=== PATIENT | female | born 1980 | race African-American/Black ===

== ENCOUNTER 2020-07-01 18:57 | Emergency (ER) | payer OTHER ==
[2020-07-01 19:10] VITALS: BP 129/79; PULSE 92; TEMP 98.3; BMI 27.4
[2020-07-01 21:50] LABS: BASO % 0.7 % (0-2.0); EOS % 0.3 % (0-4.5); HEMATOCRIT 38.7 % (32.4-45.2); HEMOGLOBIN 12.7 GM/dL (10.7-15.3); LYMPH % 36.3 % (8-40); MCH 28.3 pg (25.7-33.7); MCHC 32.9 g/dl (32.0-36.0); MEAN CELL VOLUME 86.2 fl (80-96); MEAN PLT VOLUME 8.8 fl (7.5-11.1); MONO % 7.6 % (3.8-10.2); NEUT % 55.1 % (42.8-82.8); PLATELET COUNT 265 K/MM3 (134-434); RBC 4.49 M/mm3 (3.60-5.2); RDW 15.5 % (11.6-15.6); WHITE BLOOD COUNT 5.1 K/mm3 (4.0-10.0)
[2020-07-01 22:56] LABS: URINE APPEARANCE CLEAR; URINE BILIRUBIN NEGATIVE (NEGATIVE); URINE COLOR YELLOW; URINE GLUCOSE (UA) NEGATIVE (NEGATIVE); URINE KETONE NEGATIVE (NEGATIVE); URINE LEUK ESTERASE NEGATIVE (NEGATIVE); URINE NITRITE NEGATIVE (NEGATIVE); URINE PROTEIN NEGATIVE (NEGATIVE)
== END 2020-07-02 00:30 | disposition home or self-care (01) ==
LOC: JER 18:57
DX: O26.851 Spotting complicating pregnancy, first trimester (principal); Z3A.08 8 weeks gestation of pregnancy
CPT/HCPCS: 36415; 76817-TC; 81003; 84702; 85025; 86850; 86900; 86901; 87086; 99284-25

== ENCOUNTER 2020-07-08 16:15 | Emergency (ER) | payer OTHER ==
[2020-07-08 16:25] VITALS: BP 133/83; PULSE 83; TEMP 97.9; BMI 35.6
== END 2020-07-08 20:36 | disposition home or self-care (01) ==
LOC: JER 16:15
DX: O20.8 Other hemorrhage in early pregnancy (principal); Z3A.01 Less than 8 weeks gestation of pregnancy
CPT/HCPCS: 36415; 76817-TC; 84702; 99284-25

== ENCOUNTER 2021-04-06 16:16 | Inpatient (IN) | payer OTHER ==
[2021-04-06] MEDS ORDERED: SODIUM CHLORIDE 0.9% 500 ML INFUS.BAG IV ONE ×2 (19:13→20:28)
[2021-04-06] MEDS ORDERED: ACETAMINOPHEN 1000 MG/100 ML BAG IVPB ONE (19:13)
[2021-04-06] MEDS ORDERED: ACETAMINOPHEN INJECTION 100 ML IVPB ONE (19:36)
[2021-04-06 19:46] LABS: BASO % 0.1 % (0-2.0); HEMATOCRIT 42.3 % (32.4-45.2); HEMOGLOBIN 11.5 GM/dL (10.7-15.3); LYMPH % 4.8 % (8-40); MCH 24.1 pg (25.7-33.7); MCHC 27.2 g/dl (32.0-36.0); MEAN CELL VOLUME 88.4 fl (80-96); MEAN PLT VOLUME 9.3 fl (7.5-11.1); MONO % 1.1 % (3.8-10.2); PLATELET COUNT 225 10^3/uL (134-434); RBC 4.79 M/mm3 (3.60-5.2); RDW 15.4 % (11.6-15.6); WHITE BLOOD COUNT 3.7 K/mm3 (4.0-10.0)
[2021-04-06 20:14] LABS: CHLORIDE 105 mmol/L (98-107); SODIUM 133 mmol/L (136-145)
[2021-04-06 20:22] LABS: ANISOCYTOSIS 3+; MACROCYTOSIS 0
[2021-04-06] MEDS ORDERED: ONDANSETRON 4 MG/2 ML VIAL IVPUSH ONE ×2 (20:28→22:01)
[2021-04-06] MEDS ORDERED: ONDANSETRON 4 MG/2 ML VIAL ONE ×2 (20:31→22:02)
[2021-04-06 21:14] LABS: CO2 17 mmol/L (21-32)
[2021-04-06 21:29] LABS: ALBUMIN 3.5 g/dl (3.4-5.0); CALCIUM 9.8 mg/dL (8.5-10.1)
[2021-04-06 21:30] LABS: GLUCOSE,RANDOM 92 mg/dL (74-106)
[2021-04-06 21:33] LABS: CREATININE 1.3 mg/dL (0.55-1.3); SGOT/AST 94 U/L (15-37)
[2021-04-06 21:34] LABS: BILIRUBIN,TOTAL 0.5 mg/dL (0.2-1); TOT PROT 8.2 g/dl (6.4-8.2)
[2021-04-06 21:36] LABS: ALK PHOS 78 U/L (45-117)
[2021-04-06 21:37] LABS: EPI CELLS 4 /uL (0-25.1); HYALINE CASTS 1 /uL (0-3.1); PH,URINE 5.5 (5.0-8.0); URINE APPEARANCE CLOUDY; URINE BACTERIA 8553 /uL (0-1359); URINE BILIRUBIN NEGATIVE (NEGATIVE); URINE COLOR YELLOW; URINE GLUCOSE (UA) NEGATIVE (NEGATIVE); URINE KETONE 1+ (NEGATIVE); URINE LEUK ESTERASE 2+ (NEGATIVE); URINE NITRITE NEGATIVE (NEGATIVE); URINE PROTEIN TRACE (NEGATIVE); URINE RBC 29 /uL (0-23.9); URINE WBC 1458 /uL (0-25.8)
[2021-04-06 21:41] LABS: BLOOD UREA NITROGEN 9.5 mg/dL (7-18)
[2021-04-06 21:57] LABS: ANION GAP 11 MMOL/L (8-16); SGPT/ALT 61 U/L (13-61)
[2021-04-06] MEDS ORDERED: NITROFURANTOIN MACROCRYSTAL 50 MG CAPSULE (FP) PO ONE (22:00)
[2021-04-06] MEDS ORDERED: NITROFURANTOIN MACROCRYSTAL 50 MG CAPSULE (FP) PO SCH (22:00)
[2021-04-06] MEDS ORDERED: CEFTRIAXONE 1 GM/50 ML BAG ONE (23:46)
[2021-04-07] MEDS ORDERED: ACETAMINOPHEN 1000 MG/100 ML BAG IVPB ONE (00:03)
[2021-04-07] MEDS ORDERED: ACETAMINOPHEN INJECTION 100 ML IVPB ONE ×2 (00:04→04:38)
[2021-04-07] MEDS ORDERED: SODIUM CHLORIDE 1,000 ML IV STA ×2 (02:39→06:18)
[2021-04-07] MEDS ORDERED: PIPERACILLIN/TAZOB 3.375 GM 3.375 GM in DEXTROSE 5%-WATER - 50 ML IVPB SCH ×4 (03:45→18:00)
[2021-04-07] MEDS ORDERED: PIPERACILLIN/TAZOB 3.375 GM 3.375 GM/50 ML BAG IVPB ONE (03:56)
[2021-04-07] MEDS ORDERED: SODIUM CHLORIDE 1,000 ML IV SCH ×2 (04:30→10:53)
[2021-04-07 04:32] LABS: HEMATOCRIT 32.3 % (32.4-45.2); HEMOGLOBIN 10.7 GM/dL (10.7-15.3); MCH 28.8 pg (25.7-33.7); MCHC 33.2 g/dl (32.0-36.0); MEAN CELL VOLUME 86.8 fl (80-96); MEAN PLT VOLUME 8.7 fl (7.5-11.1); PLATELET COUNT 136 10^3/uL (134-434); RBC 3.72 M/mm3 (3.60-5.2); RDW 14.9 % (11.6-15.6); WHITE BLOOD COUNT 10.5 K/mm3 (4.0-10.0)
[2021-04-07 04:52] LABS: BLOOD UREA NITROGEN 9.7 mg/dL (7-18)
[2021-04-07 04:55] LABS: CREATININE 1.5 mg/dL (0.55-1.3)
[2021-04-07 04:57] LABS: BILIRUBIN,TOTAL 0.4 mg/dL (0.2-1)
[2021-04-07 05:00] LABS: ALBUMIN 2.4 g/dl (3.4-5.0); CALCIUM 8.2 mg/dL (8.5-10.1); LACTIC ACID 4.1 mmol/L (0.4-2.0); TOT PROT 5.6 g/dl (6.4-8.2)
[2021-04-07 05:51] LABS: ANISOCYTOSIS 1+; MACROCYTOSIS 0; PLATELET ESTIMATE DECREASED
[2021-04-07] MEDS ORDERED: HEPARIN NA (PORCINE) 5,000 UNITS/ML 1ML VIAL SQ SCH ×3 (06:00→10:00)
[2021-04-07] MEDS ORDERED: SODIUM CHLORIDE 500 ML IV STA (06:14)
[2021-04-07] MEDS ORDERED: NITROFURANTOIN MACROCRYSTAL 50 MG CAPSULE (FP) PO ONE (07:28)
[2021-04-07] MEDS ORDERED: ACETAMINOPHEN 1000 MG/100 ML BAG IVPB PRN (08:36)
[2021-04-07] MEDS ORDERED: PIPERACILLIN/TAZOBACTAM 3.375 GM VIAL IVPB ONE (08:43)
[2021-04-07] MEDS ORDERED: DEXTROSE 5%-WATER - 50 ML IVPB ONE (08:44)
[2021-04-07] MEDS: NOREPINEPHRINE BITARTRATE 16,000 MCG in SODIUM CHLORIDE 484 ML IV SCH (08:48)
[2021-04-07] MEDS: MUPIROCIN 2% TOPICAL OINTMENT FOR DECOLONIZATION NS SCH ×2 (09:20→22:29)
[2021-04-07] MEDS ORDERED: MUPIROCIN 2% TOPICAL OINTMENT FOR DECOLONIZATION NS SCH ×2 (10:00)
[2021-04-07] MEDS ORDERED: LACTATED RINGERS SOLUTION 1,000 ML/1,000 ML INFUS.BAG IV STA (12:37)
[2021-04-07 14:00] LABS: LACTIC ACID 6.8 mmol/L (0.4-2.0)
[2021-04-07] MEDS ORDERED: PIPERACILLIN/TAZOB 3.375 GM 3.375 GM in SODIUM CHLORIDE 50 ML IVPB ONE (14:15)
[2021-04-07] MEDS ORDERED: PIPERACILLIN/TAZOB 3.375 GM 3.375 GM in DEXTROSE 5%-WATER - 50 ML IVPB ONE (14:17)
[2021-04-07] MEDS ORDERED: CHLORHEXIDINE GLUCONATE 4% CLEANSER FOR DECOLONIZATION TP SCH ×2 (22:00)
[2021-04-07] MEDS: HEPARIN NA (PORCINE) 5,000 UNITS/ML 1ML VIAL SQ SCH (22:29)
[2021-04-07] MEDS: CHLORHEXIDINE GLUCONATE 4% CLEANSER FOR DECOLONIZATION TP SCH (22:29)
[2021-04-08] MEDS ORDERED: CODEINE SO4 30 MG TABLET PO ONE (01:23)
[2021-04-08] MEDS ORDERED: DEXTROSE 5%-WATER - 50 ML IVPB ONE ×3 (01:31→16:50)
[2021-04-08] MEDS ORDERED: PIPERACILLIN/TAZOBACTAM 3.375 GM VIAL IVPB ONE ×3 (01:31→16:50)
[2021-04-08] MEDS: PIPERACILLIN/TAZOB 3.375 GM 3.375 GM in DEXTROSE 5%-WATER - 50 ML IVPB SCH ×3 (02:06→17:53)
[2021-04-08] MEDS: HEPARIN NA (PORCINE) 5,000 UNITS/ML 1ML VIAL SQ SCH ×3 (07:05→21:11)
[2021-04-08] MEDS: NOREPINEPHRINE BITARTRATE 16,000 MCG in SODIUM CHLORIDE 484 ML IV SCH (10:57)
[2021-04-08] MEDS: MUPIROCIN 2% TOPICAL OINTMENT FOR DECOLONIZATION NS SCH ×2 (10:58→21:11)
[2021-04-08] MEDS: TAMSULOSIN HCL 0.4 MG CAP PO SCH (10:58)
[2021-04-08] MEDS ORDERED: SODIUM CHLORIDE 0.45% 1,000 ML IV SCH (12:00)
[2021-04-08 12:41] LABS: ALBUMIN 2.3 g/dl (3.4-5.0); BLOOD UREA NITROGEN 16.2 mg/dL (7-18); CALCIUM 7.8 mg/dL (8.5-10.1)
[2021-04-08 12:44] LABS: CREATININE 1.1 mg/dL (0.55-1.3)
[2021-04-08 12:46] LABS: BILIRUBIN,TOTAL 0.4 mg/dL (0.2-1); TOT PROT 5.4 g/dl (6.4-8.2)
[2021-04-08 12:48] LABS: LACTIC ACID 3.4 mmol/L (0.4-2.0)
[2021-04-08 14:43] LABS: HEMATOCRIT 30.8 % (32.4-45.2); HEMOGLOBIN 10.1 GM/dL (10.7-15.3); MCH 28.3 pg (25.7-33.7); MCHC 32.8 g/dl (32.0-36.0); MEAN CELL VOLUME 86.4 fl (80-96); MEAN PLT VOLUME 9.1 fl (7.5-11.1); PLATELET COUNT 88 10^3/uL (134-434); RBC 3.57 M/mm3 (3.60-5.2); RDW 16.1 % (11.6-15.6); WHITE BLOOD COUNT 15.4 K/mm3 (4.0-10.0)
[2021-04-08 15:17] LABS: ANISOCYTOSIS 1+; PLATELET ESTIMATE DECREASED
[2021-04-08] MEDS ORDERED: ACETAMINOPHEN 1000 MG/100 ML BAG IVPB STA (16:51)
[2021-04-08] MEDS: CHLORHEXIDINE GLUCONATE 4% CLEANSER FOR DECOLONIZATION TP SCH (21:11)
[2021-04-09] MEDS ORDERED: PIPERACILLIN/TAZOBACTAM 3.375 GM VIAL IVPB ONE ×3 (00:53→15:15)
[2021-04-09] MEDS ORDERED: DEXTROSE 5%-WATER - 50 ML IVPB ONE ×3 (00:53→15:15)
[2021-04-09] MEDS: PIPERACILLIN/TAZOB 3.375 GM 3.375 GM in DEXTROSE 5%-WATER - 50 ML IVPB SCH ×3 (01:09→17:16)
[2021-04-09] MEDS ORDERED: CODEINE SO4 30 MG TABLET PO ONE (01:55)
[2021-04-09] MEDS: HEPARIN NA (PORCINE) 5,000 UNITS/ML 1ML VIAL SQ SCH ×3 (06:13→21:52)
[2021-04-09 06:45] LABS: HEMATOCRIT 28.4 % (32.4-45.2); HEMOGLOBIN 9.4 GM/dL (10.7-15.3); MCH 28.3 pg (25.7-33.7); MEAN CELL VOLUME 85.8 fl (80-96); MEAN PLT VOLUME 9.9 fl (7.5-11.1); PLATELET COUNT 82 10^3/uL (134-434); RBC 3.31 M/mm3 (3.60-5.2); WHITE BLOOD COUNT 16.5 K/mm3 (4.0-10.0)
[2021-04-09 06:52] LABS: CALCIUM 8.1 mg/dL (8.5-10.1)
[2021-04-09 06:53] LABS: BLOOD UREA NITROGEN 15.1 mg/dL (7-18); MAGNESIUM 1.8 mg/dL (1.8-2.4)
[2021-04-09 06:56] LABS: CREATININE 0.8 mg/dL (0.55-1.3)
[2021-04-09 06:57] LABS: BILIRUBIN,TOTAL 0.5 mg/dL (0.2-1); TOT PROT 5.1 g/dl (6.4-8.2)
[2021-04-09] MEDS: TAMSULOSIN HCL 0.4 MG CAP PO SCH (09:18)
[2021-04-09] MEDS: MUPIROCIN 2% TOPICAL OINTMENT FOR DECOLONIZATION NS SCH ×2 (09:18→21:53)
[2021-04-09] MEDS: NOREPINEPHRINE BITARTRATE 16,000 MCG in SODIUM CHLORIDE 484 ML IV SCH (09:19)
[2021-04-09] MEDS ORDERED: ACETAMINOPHEN 1000 MG/100 ML BAG IVPB STA (09:56)
[2021-04-09 10:19] LABS: ANISOCYTOSIS 0; MACROCYTOSIS 0; PLATELET ESTIMATE DECREASED
[2021-04-09] MEDS: SODIUM CHLORIDE 0.45% 1,000 ML IV SCH (11:59)
[2021-04-09] MEDS: DOCUSATE SODIUM 100 MG CAPSULE (FP) PO SCH ×2 (15:13→21:52)
[2021-04-09] MEDS ORDERED: ACETAMINOPHEN 1000 MG/100 ML BAG IVPB PRN (18:15)
[2021-04-09] MEDS: POLYETHYLENE GLYCOL (HEALTHYLAX) 3350 17 GM PACKET PO SCH (20:25)
[2021-04-09] MEDS: CHLORHEXIDINE GLUCONATE 4% CLEANSER FOR DECOLONIZATION TP SCH (21:53)
[2021-04-10] MEDS ORDERED: DEXTROSE 5%-WATER - 50 ML IVPB ONE ×3 (01:49→13:39)
[2021-04-10] MEDS ORDERED: PIPERACILLIN/TAZOBACTAM 3.375 GM VIAL IVPB ONE ×2 (01:49→08:21)
[2021-04-10] MEDS: PIPERACILLIN/TAZOB 3.375 GM 3.375 GM in DEXTROSE 5%-WATER - 50 ML IVPB SCH ×2 (01:50→09:45)
[2021-04-10] MEDS: SODIUM CHLORIDE 0.45% 1,000 ML IV SCH ×2 (01:51→11:02)
[2021-04-10] MEDS: HEPARIN NA (PORCINE) 5,000 UNITS/ML 1ML VIAL SQ SCH (05:36)
[2021-04-10] MEDS: DOCUSATE SODIUM 100 MG CAPSULE (FP) PO SCH ×3 (05:37→21:02)
[2021-04-10 07:31] LABS: HEMATOCRIT 28.7 % (32.4-45.2); HEMOGLOBIN 9.4 GM/dL (10.7-15.3); MCH 28.1 pg (25.7-33.7); MCHC 32.6 g/dl (32.0-36.0); MEAN PLT VOLUME 9.8 fl (7.5-11.1); PLATELET COUNT 71 10^3/uL (134-434); RBC 3.34 M/mm3 (3.60-5.2); RDW 16.1 % (11.6-15.6); WHITE BLOOD COUNT 13.9 K/mm3 (4.0-10.0)
[2021-04-10 07:45] LABS: ALBUMIN 1.9 g/dl (3.4-5.0); CALCIUM 8.2 mg/dL (8.5-10.1)
[2021-04-10 07:46] LABS: BLOOD UREA NITROGEN 13.4 mg/dL (7-18); MAGNESIUM 1.9 mg/dL (1.8-2.4)
[2021-04-10 07:48] LABS: CREATININE 0.6 mg/dL (0.55-1.3)
[2021-04-10 07:49] LABS: PHOSPHOROUS 1.7 mg/dL (2.5-4.9)
[2021-04-10 07:50] LABS: BILIRUBIN,TOTAL 1.1 mg/dL (0.2-1); TOT PROT 5.1 g/dl (6.4-8.2)
[2021-04-10] MEDS: TAMSULOSIN HCL 0.4 MG CAP PO SCH (08:47)
[2021-04-10] MEDS: NOREPINEPHRINE BITARTRATE 16,000 MCG in SODIUM CHLORIDE 484 ML IV SCH (08:47)
[2021-04-10 08:51] LABS: ANISOCYTOSIS 0; HELMET CELLS 0; HOWELL-JOLLY BODIES 0; MACROCYTOSIS 0; OVALOCYTE 0; PLATELET ESTIMATE DECREASED; ROULEAU 0; SICKELED CELLS 0; TARGET CELLS 0; TEAR DROP CELLS 0; TOXIC GRANULATION 0
[2021-04-10] MEDS: MUPIROCIN 2% TOPICAL OINTMENT FOR DECOLONIZATION NS SCH ×2 (09:45→22:45)
[2021-04-10] MEDS: NAPH,MB-DB/K PH,MBDB POWDER PACKET PO SCH ×2 (12:15→21:02)
[2021-04-10] MEDS ORDERED: cefTRIAXone SODIUM 1 GM VIAL ONE (13:39)
[2021-04-10 14:08] LABS: INR 1.15 (0.83-1.09); PROTHROMBIN TIME (PATIENT) 13.3 SEC (9.7-13.0)
[2021-04-10 14:11] LABS: ACTIVATED PTT 29.3 SECONDS (25.2-36.5)
[2021-04-10] MEDS: CODEINE SO4 30 MG TABLET PO PRN ×2 (15:16→21:07)
[2021-04-10] MEDS: CEFTRIAXONE 1 GM in DEXTROSE 5%-WATER - 50 ML IVPB SCH (15:47)
[2021-04-10] MEDS ORDERED: POTASSIUM CHLORIDE TABS 20 MEQ TABLET.ER (FP) PO ONE (16:59)
[2021-04-10] MEDS: POLYETHYLENE GLYCOL (HEALTHYLAX) 3350 17 GM PACKET PO SCH (21:02)
[2021-04-10] MEDS: CHLORHEXIDINE GLUCONATE 4% CLEANSER FOR DECOLONIZATION TP SCH (22:46)
[2021-04-11] MEDS: DOCUSATE SODIUM 100 MG CAPSULE (FP) PO SCH ×4 (05:13→21:29)
[2021-04-11] MEDS ORDERED: DEXTROSE 5%-WATER - 50 ML IVPB ONE (08:43)
[2021-04-11] MEDS ORDERED: cefTRIAXone SODIUM 1 GM VIAL ONE (08:43)
[2021-04-11 09:05] LABS: HEMOGLOBIN 9.2 GM/dL (10.7-15.3); MEAN CELL VOLUME 85.2 fl (80-96); MEAN PLT VOLUME 9.7 fl (7.5-11.1); PLATELET COUNT 73 10^3/uL (134-434); RBC 3.17 M/mm3 (3.60-5.2); RDW 16.4 % (11.6-15.6); WHITE BLOOD COUNT 10.9 K/mm3 (4.0-10.0)
[2021-04-11] MEDS: CEFTRIAXONE 1 GM in DEXTROSE 5%-WATER - 50 ML IVPB SCH (09:17)
[2021-04-11] MEDS: TAMSULOSIN HCL 0.4 MG CAP PO SCH (09:17)
[2021-04-11 09:29] LABS: CHLORIDE 108 mmol/L (98-107); SODIUM 143 mmol/L (136-145)
[2021-04-11 09:34] LABS: CALCIUM 8.1 mg/dL (8.5-10.1)
[2021-04-11 09:35] LABS: ALBUMIN 1.9 g/dl (3.4-5.0); BLOOD UREA NITROGEN 12.4 mg/dL (7-18); CO2 24 mmol/L (21-32); GLUCOSE,RANDOM 64 mg/dL (74-106); MAGNESIUM 1.9 mg/dL (1.8-2.4)
[2021-04-11 09:37] LABS: SGPT/ALT 32 U/L (13-61)
[2021-04-11 09:38] LABS: CREATININE 0.6 mg/dL (0.55-1.3); SGOT/AST 42 U/L (15-37)
[2021-04-11 09:39] LABS: BILIRUBIN,TOTAL 0.9 mg/dL (0.2-1); TOT PROT 5.1 g/dl (6.4-8.2)
[2021-04-11 09:40] LABS: ALK PHOS 144 U/L (45-117)
[2021-04-11 09:44] LABS: ANION GAP 10 MMOL/L (8-16)
[2021-04-11] MEDS: MUPIROCIN 2% TOPICAL OINTMENT FOR DECOLONIZATION NS SCH ×2 (10:38→21:24)
[2021-04-11] MEDS ORDERED: POTASSIUM CHLORIDE TABS 20 MEQ TABLET.ER (FP) PO ONE (10:45)
[2021-04-11 11:24] LABS: ANISOCYTOSIS 0; MACROCYTOSIS 0; PLATELET ESTIMATE DECREASED
[2021-04-11] MEDS ORDERED: POTASSIUM PHOSPHATE 30 MM in SODIUM CHLORIDE 500 ML IVPB ONE (11:30)
[2021-04-11] MEDS: ACETAMINOPHEN 325 MG TABLET (FP) PO PRN ×2 (13:49→21:23)
[2021-04-11] MEDS: KCL 10 MEQ IVPB 10 MEQ/100 ML INFUS.BAG IVPB SCH ×2 (15:31→16:39)
[2021-04-11 20:22] LABS: HEMATOCRIT 29.6 % (32.4-45.2); HEMOGLOBIN 9.6 GM/dL (10.7-15.3); MCH 28.1 pg (25.7-33.7); MCHC 32.3 g/dl (32.0-36.0); MEAN CELL VOLUME 86.9 fl (80-96); MEAN PLT VOLUME 10.1 fl (7.5-11.1); PLATELET COUNT 88 10^3/uL (134-434); RBC 3.41 M/mm3 (3.60-5.2); RDW 16.3 % (11.6-15.6)
[2021-04-11] MEDS: POLYETHYLENE GLYCOL (HEALTHYLAX) 3350 17 GM PACKET PO SCH ×2 (21:23→21:30)
[2021-04-11] MEDS: CHLORHEXIDINE GLUCONATE 4% CLEANSER FOR DECOLONIZATION TP SCH (21:24)
[2021-04-11 21:32] LABS: ANISOCYTOSIS 0; MACROCYTOSIS 0; PLATELET ESTIMATE DECREASED
[2021-04-12] MEDS: DOCUSATE SODIUM 100 MG CAPSULE (FP) PO SCH ×3 (07:01→21:01)
[2021-04-12] MEDS ORDERED: DEXTROSE 5%-WATER - 50 ML IVPB ONE (09:17)
[2021-04-12] MEDS ORDERED: cefTRIAXone SODIUM 1 GM VIAL ONE (09:17)
[2021-04-12] MEDS: TAMSULOSIN HCL 0.4 MG CAP PO SCH (09:22)
[2021-04-12] MEDS: CEFTRIAXONE 1 GM in DEXTROSE 5%-WATER - 50 ML IVPB SCH (09:23)
[2021-04-12 13:14] LABS: HEMOGLOBIN 9.3 GM/dL (10.7-15.3); MCH 28.2 pg (25.7-33.7); MCHC 33.3 g/dl (32.0-36.0); MEAN CELL VOLUME 84.8 fl (80-96); MEAN PLT VOLUME 9.5 fl (7.5-11.1); PLATELET COUNT 102 10^3/uL (134-434); RBC 3.31 M/mm3 (3.60-5.2); RDW 16.1 % (11.6-15.6); WHITE BLOOD COUNT 10.1 K/mm3 (4.0-10.0)
[2021-04-12 13:52] LABS: ANISOCYTOSIS 2+; MACROCYTOSIS 1+; PLATELET ESTIMATE DECREASED
[2021-04-12 14:09] LABS: CALCIUM 8.3 mg/dL (8.5-10.1)
[2021-04-12] MEDS ORDERED: POTASSIUM CHLORIDE TABS 20 MEQ TABLET.ER (FP) PO ONE (14:09)
[2021-04-12 14:10] LABS: BLOOD UREA NITROGEN 7.8 mg/dL (7-18); MAGNESIUM 1.5 mg/dL (1.8-2.4)
[2021-04-12 14:13] LABS: CREATININE 0.6 mg/dL (0.55-1.3); PHOSPHOROUS 2.9 mg/dL (2.5-4.9)
[2021-04-12] MEDS: FERROUS SO4 325 MG TABLET (FP) PO SCH (16:03)
[2021-04-12] MEDS: PRENATAL VITAMINS W/ FOLIC ACID TABLET (FP) PO SCH (16:03)
[2021-04-12] MEDS: POLYETHYLENE GLYCOL (HEALTHYLAX) 3350 17 GM PACKET PO SCH (21:01)
[2021-04-12] MEDS: ACETAMINOPHEN 325 MG TABLET (FP) PO PRN (21:01)
[2021-04-13] MEDS ORDERED: MAGNESIUM SULF 50% (8.12 MEQ/2 ML-1 GM VIAL) IVPB ONE ×2 (07:38→08:00)
[2021-04-13] MEDS: DOCUSATE SODIUM 100 MG CAPSULE (FP) PO SCH ×3 (07:54→21:11)
[2021-04-13 07:58] LABS: HEMATOCRIT 25.9 % (32.4-45.2); HEMOGLOBIN 8.8 GM/dL (10.7-15.3); MCH 28.8 pg (25.7-33.7); MEAN CELL VOLUME 84.7 fl (80-96); MEAN PLT VOLUME 8.9 fl (7.5-11.1); PLATELET COUNT 136 10^3/uL (134-434); RBC 3.05 M/mm3 (3.60-5.2); WHITE BLOOD COUNT 9.5 K/mm3 (4.0-10.0)
[2021-04-13] MEDS ORDERED: POTASSIUM CHLORIDE TABS 20 MEQ TABLET.ER (FP) PO ONE (08:22)
[2021-04-13 08:34] LABS: ALBUMIN 2.2 g/dl (3.4-5.0); BLOOD UREA NITROGEN 6.4 mg/dL (7-18); CALCIUM 8.6 mg/dL (8.5-10.1); MAGNESIUM 1.7 mg/dL (1.8-2.4)
[2021-04-13 08:37] LABS: CREATININE 0.5 mg/dL (0.55-1.3)
[2021-04-13 08:39] LABS: BILIRUBIN,TOTAL 0.9 mg/dL (0.2-1); TOT PROT 5.7 g/dl (6.4-8.2)
[2021-04-13] MEDS ORDERED: cefTRIAXone SODIUM 1 GM VIAL ONE (09:02)
[2021-04-13] MEDS ORDERED: DEXTROSE 5%-WATER - 50 ML IVPB ONE (09:02)
[2021-04-13] MEDS: PRENATAL VITAMINS W/ FOLIC ACID TABLET (FP) PO SCH (09:12)
[2021-04-13] MEDS: FERROUS SO4 325 MG TABLET (FP) PO SCH (09:13)
[2021-04-13] MEDS: TAMSULOSIN HCL 0.4 MG CAP PO SCH (09:13)
[2021-04-13] MEDS: CEFTRIAXONE 1 GM in DEXTROSE 5%-WATER - 50 ML IVPB SCH (11:02)
[2021-04-13 11:45] LABS: ANISOCYTOSIS 0; MACROCYTOSIS 0; OVALOCYTE 1+; PLATELET ESTIMATE DECREASED
[2021-04-13] MEDS: POLYETHYLENE GLYCOL (HEALTHYLAX) 3350 17 GM PACKET PO SCH (21:11)
[2021-04-14] MEDS: DOCUSATE SODIUM 100 MG CAPSULE (FP) PO SCH ×2 (05:32→13:30)
[2021-04-14 08:38] LABS: BASO % 0.2 % (0-2.0); EOS % 0.3 % (0-4.5); HEMOGLOBIN 8.3 GM/dL (10.7-15.3); MCH 28.5 pg (25.7-33.7); MEAN CELL VOLUME 86.4 fl (80-96); MEAN PLT VOLUME 8.9 fl (7.5-11.1); MONO % 10.1 % (3.8-10.2); NEUT % 73.4 % (42.8-82.8); PLATELET COUNT 191 10^3/uL (134-434)
[2021-04-14 09:00] LABS: BLOOD UREA NITROGEN 5.3 mg/dL (7-18); CALCIUM 8.6 mg/dL (8.5-10.1)
[2021-04-14] MEDS ORDERED: cefTRIAXone SODIUM 1 GM VIAL ONE (09:03)
[2021-04-14] MEDS ORDERED: DEXTROSE 5%-WATER - 50 ML IVPB ONE (09:03)
[2021-04-14 09:04] LABS: CREATININE 0.5 mg/dL (0.55-1.3)
[2021-04-14] MEDS: PRENATAL VITAMINS W/ FOLIC ACID TABLET (FP) PO SCH (09:29)
[2021-04-14] MEDS: CEFTRIAXONE 1 GM in DEXTROSE 5%-WATER - 50 ML IVPB SCH (09:29)
[2021-04-14] MEDS: FERROUS SO4 325 MG TABLET (FP) PO SCH (09:29)
[2021-04-14] MEDS: TAMSULOSIN HCL 0.4 MG CAP PO SCH (09:29)
[2021-04-14 14:24] VITALS: BP 129/73; PULSE 106; TEMP 98.9
[2021-04-14] MEDS: ACETAMINOPHEN 325 MG TABLET (FP) PO PRN (14:36)
[2021-04-14 14:55] VITALS: BMI 34.4
== END 2021-04-14 17:07 | disposition home or self-care (01) | DRG 951 ==
LOC: JER 16:16 → JERBED 04-07 00:05 → J2W 04-07 07:16 → J7W 04-10 18:56
PROVIDERS: ADMIT Internal Medicine
PROC: 0T9130Z Drainage of Left Kidney with Drainage Device, Percutaneous Approach (ICD-10-PCS; principal; 2021-04-07)
DX: O98.811 Other maternal infectious and parasitic diseases complicating pregnancy, first trimester (principal); A41.89 Other specified sepsis; O23.01 Infections of kidney in pregnancy, first trimester; N13.6 Pyonephrosis; E87.2 Acidosis; Z3A.08 8 weeks gestation of pregnancy; N17.9 Acute kidney failure, unspecified; R65.21 Severe sepsis with septic shock; I95.9 Hypotension, unspecified; E87.5 Hyperkalemia; M54.2 Cervicalgia; O99.211 Obesity complicating pregnancy, first trimester; E87.6 Hypokalemia; D64.9 Anemia, unspecified
CPT/HCPCS: 36415; 50432; 71045-TC-FY; 76775-TC; 76817-TC; 76830-TC; 80048; 80053; 81003; 82962; 83010; 83605; 83615; 83735; 84100; 84132; 84703; 85025; 85610; 85730; 86022; 87040; 87070; 87075; 87086; 87102; 87116; 87186; 87205; 87206; 87210; 93005; 93010; 97116-GP; 97161-GP; 99285-25; C9803; J1644; U0003; U0005

== ENCOUNTER 2021-06-28 14:17 | Day surgery (SDC) | payer OTHER ==
[2021-06-28 17:02] LABS: EPI CELLS 9 /uL (0-25.1); HYALINE CASTS 12 /uL (0-3.1); URINE APPEARANCE CLEAR; URINE BACTERIA 1710 /uL (0-1359); URINE BILIRUBIN NEGATIVE (NEGATIVE); URINE COLOR DK YELLOW; URINE GLUCOSE (UA) NEGATIVE (NEGATIVE); URINE KETONE TRACE (NEGATIVE); URINE LEUK ESTERASE 2+ (NEGATIVE); URINE NITRITE NEGATIVE (NEGATIVE); URINE PROTEIN NEGATIVE (NEGATIVE); URINE RBC 3 /uL (0-23.9); URINE WBC 169 /uL (0-25.8)
[2021-06-28 17:31] LABS: CALCIUM 9.2 mg/dL (8.5-10.1)
[2021-06-28 17:32] LABS: BLOOD UREA NITROGEN 6.3 mg/dL (7-18)
[2021-06-28 17:33] LABS: BASO % 0.3 % (0-2.0); HEMATOCRIT 32.2 % (32.4-45.2); HEMOGLOBIN 10.7 GM/dL (10.7-15.3); LYMPH % 28.3 % (8-40); MCH 28.9 pg (25.7-33.7); MCHC 33.3 g/dl (32.0-36.0); MONO % 4.8 % (3.8-10.2); NEUT % 65.6 % (42.8-82.8); PLATELET COUNT 298 10^3/uL (134-434); RDW 15.5 % (11.6-15.6); WHITE BLOOD COUNT 5.8 K/mm3 (4.0-10.0)
[2021-06-28 17:36] LABS: TOT PROT 7.4 g/dl (6.4-8.2)
[2021-06-28 17:37] LABS: BILIRUBIN,TOTAL 0.3 mg/dL (0.2-1); CREATININE 0.5 mg/dL (0.55-1.3)
[2021-06-28 17:57] LABS: URINE CRYSTALS FEW CALCIUM OXALATES /hpf
[2021-06-28] MEDS ORDERED: LACTATED RINGERS SOLUTION 1,000 ML IV SCH (20:30)
[2021-06-28] MEDS ORDERED: ACETAMINOPHEN 1000 MG/100 ML BAG IVPB PRN (20:31)
[2021-06-28] MEDS ORDERED: SODIUM CHLORIDE 1,000 ML IV SCH (21:30)
[2021-06-29] MEDS: CEFTRIAXONE 1 GM in DEXTROSE 5%-WATER - 50 ML IVPB SCH ×3 (00:15→10:32)
[2021-06-29 00:49] VITALS: BMI 32.6
[2021-06-29] MEDS ORDERED: DEXTROSE 5%-WATER - 50 ML IVPB ONE ×2 (04:17→09:48)
[2021-06-29] MEDS ORDERED: cefTRIAXone SODIUM 1 GM VIAL ONE ×2 (04:17→09:48)
[2021-06-29 08:05] VITALS: BP 112/58; PULSE 88; TEMP 98.1
[2021-06-29 09:21] LABS: BASO % 0.2 % (0-2.0); EOS % 1.5 % (0-4.5); HEMATOCRIT 28.8 % (32.4-45.2); HEMOGLOBIN 9.5 GM/dL (10.7-15.3); MCH 28.7 pg (25.7-33.7); MEAN CELL VOLUME 86.8 fl (80-96); MEAN PLT VOLUME 8.7 fl (7.5-11.1); MONO % 6.2 % (3.8-10.2); NEUT % 64.1 % (42.8-82.8); PLATELET COUNT 253 10^3/uL (134-434); RBC 3.32 M/mm3 (3.60-5.2); RDW 15.5 % (11.6-15.6); WHITE BLOOD COUNT 5.9 K/mm3 (4.0-10.0)
[2021-06-29 09:42] LABS: ALBUMIN 2.6 g/dl (3.4-5.0); BLOOD UREA NITROGEN 4.8 mg/dL (7-18); CALCIUM 8.6 mg/dL (8.5-10.1); MAGNESIUM 1.8 mg/dL (1.8-2.4)
[2021-06-29 09:45] LABS: PHOSPHOROUS 4.4 mg/dL (2.5-4.9)
[2021-06-29 09:46] LABS: CREATININE 0.4 mg/dL (0.55-1.3)
[2021-06-29 09:47] LABS: BILIRUBIN,TOTAL 0.3 mg/dL (0.2-1); TOT PROT 6.1 g/dl (6.4-8.2)
[2021-06-29] MEDS ORDERED: POTASSIUM CHLORIDE TABS 20 MEQ TABLET.ER (FP) PO ONE (16:45)
== END 2021-06-29 18:32 | disposition home or self-care (01) ==
LOC: JER 14:17 → SUATTDRO 16:43 → JASUSAT 16:43 → J6S 23:59 → JASUSAT 06-29 18:32
PROVIDERS: ATTEND Internal Medicine
PROC: 3E033GC Introduction of Other Therapeutic Substance into Peripheral Vein, Percutaneous Approach (ICD-10-PCS; principal; 2021-06-28)
DX: R10.9 Unspecified abdominal pain (principal); R35.0 Frequency of micturition
CPT/HCPCS: 36415; 50435; 80053; 81003; 83605; 83735; 84100; 85025; 87040; 87086; 87186; 93005; 93010; 99285-25; A4358; C1729; C1769; C9803-CS; U0003; U0005

== ENCOUNTER 2021-07-31 10:14 | Inpatient (IN) | payer OTHER ==
[2021-07-31 10:35] VITALS: BMI 37.0
[2021-07-31] MEDS ORDERED: ACETAMINOPHEN 325 MG TABLET (FP) PO ONE (11:31)
[2021-07-31 12:58] LABS: BASO % 0.2 % (0-2.0); EOS % 0.3 % (0-4.5); HEMATOCRIT 35.4 % (32.4-45.2); HEMOGLOBIN 11.5 GM/dL (10.7-15.3); LYMPH % 25.7 % (8-40); MCH 28.3 pg (25.7-33.7); MCHC 32.4 g/dl (32.0-36.0); MEAN CELL VOLUME 87.5 fl (80-96); MONO % 5.8 % (3.8-10.2); PLATELET COUNT 317 10^3/uL (134-434); RBC 4.05 M/mm3 (3.60-5.2); WHITE BLOOD COUNT 6.6 K/mm3 (4.0-10.0)
[2021-07-31] MEDS ORDERED: ACETAMINOPHEN 325 MG TABLET (FP) ONE (13:00)
[2021-07-31 13:02] LABS: EPI CELLS 5 /uL (0-25.1); HYALINE CASTS 3 /uL (0-3.1); PH,URINE 6.5 (5.0-8.0); URINE APPEARANCE CLOUDY; URINE BACTERIA >9,000 /uL (0-1359); URINE BILIRUBIN 1+ (NEGATIVE); URINE COLOR DK YELLOW; URINE GLUCOSE (UA) NEGATIVE (NEGATIVE); URINE KETONE TRACE (NEGATIVE); URINE LEUK ESTERASE 3+ (NEGATIVE); URINE NITRITE POSITIVE (NEGATIVE); URINE PROTEIN 1+ (NEGATIVE); URINE RBC 49 /uL (0-23.9); URINE WBC 1705 /uL (0-25.8)
[2021-07-31 13:04] LABS: INR 1.02 (0.83-1.09); PROTHROMBIN TIME (PATIENT) 11.7 SEC (9.7-13.0)
[2021-07-31 13:07] LABS: ACTIVATED PTT 30.8 SECONDS (25.2-36.5)
[2021-07-31 13:21] LABS: BLOOD UREA NITROGEN 5.1 mg/dL (7-18); CALCIUM 9.4 mg/dL (8.5-10.1)
[2021-07-31 13:25] LABS: CREATININE 0.5 mg/dL (0.55-1.3)
[2021-07-31 13:26] LABS: BILIRUBIN,TOTAL 0.3 mg/dL (0.2-1); TOT PROT 7.3 g/dl (6.4-8.2)
[2021-07-31] MEDS: CEFTAZIDIME PENTAHYDRATE 1 GM in DEXTROSE 5%-WATER - 50 ML IVPB SCH (20:17)
[2021-07-31] MEDS: ELECTROLYTE-148 SOLN 1,000 ML IV SCH (22:00)
[2021-08-01] MEDS: CEFTAZIDIME PENTAHYDRATE 1 GM in DEXTROSE 5%-WATER - 50 ML IVPB SCH ×3 (01:55→17:55)
[2021-08-01] MEDS: ELECTROLYTE-148 SOLN 1,000 ML IV SCH (17:55)
[2021-08-02] MEDS: CEFTAZIDIME PENTAHYDRATE 1 GM in DEXTROSE 5%-WATER - 50 ML IVPB SCH ×2 (02:43→09:35)
[2021-08-02] MEDS: ELECTROLYTE-148 SOLN 1,000 ML IV SCH ×2 (02:43→23:56)
[2021-08-02 11:25] LABS: BASO % 0.1 % (0-2.0); EOS % 0.4 % (0-4.5); HEMATOCRIT 30.4 % (32.4-45.2); HEMOGLOBIN 9.9 GM/dL (10.7-15.3); LYMPH % 20.8 % (8-40); MCH 28.6 pg (25.7-33.7); MCHC 32.6 g/dl (32.0-36.0); MEAN CELL VOLUME 87.8 fl (80-96); MEAN PLT VOLUME 8.5 fl (7.5-11.1); MONO % 6.4 % (3.8-10.2); NEUT % 72.3 % (42.8-82.8); PLATELET COUNT 271 10^3/uL (134-434); RBC 3.46 M/mm3 (3.60-5.2); RDW 14.7 % (11.6-15.6); WHITE BLOOD COUNT 6.3 K/mm3 (4.0-10.0)
[2021-08-02 11:47] LABS: ALBUMIN 2.4 g/dl (3.4-5.0); BLOOD UREA NITROGEN 3.1 mg/dL (7-18)
[2021-08-02 11:48] LABS: CALCIUM 8.9 mg/dL (8.5-10.1)
[2021-08-02 11:50] LABS: CREATININE 0.4 mg/dL (0.55-1.3)
[2021-08-02 11:52] LABS: BILIRUBIN,TOTAL 0.4 mg/dL (0.2-1); TOT PROT 5.9 g/dl (6.4-8.2)
[2021-08-02] MEDS: NITROFURANTOIN MACROCRYSTAL 50 MG CAPSULE (FP) PO SCH ×2 (17:42→23:58)
[2021-08-03] MEDS: NITROFURANTOIN MACROCRYSTAL 50 MG CAPSULE (FP) PO SCH ×2 (06:04→12:54)
[2021-08-03 10:08] LABS: BASO % 0.2 % (0-2.0); EOS % 0.3 % (0-4.5); HEMATOCRIT 31.1 % (32.4-45.2); HEMOGLOBIN 10.4 GM/dL (10.7-15.3); LYMPH % 28.8 % (8-40); MCHC 33.5 g/dl (32.0-36.0); MEAN CELL VOLUME 86.6 fl (80-96); MEAN PLT VOLUME 8.3 fl (7.5-11.1); MONO % 7.1 % (3.8-10.2); NEUT % 63.6 % (42.8-82.8); PLATELET COUNT 307 10^3/uL (134-434); RBC 3.59 M/mm3 (3.60-5.2); RDW 15.1 % (11.6-15.6); WHITE BLOOD COUNT 6.2 K/mm3 (4.0-10.0)
[2021-08-03 10:15] LABS: CHLORIDE 106 mmol/L (98-107); SODIUM 138 mmol/L (136-145)
[2021-08-03 10:29] LABS: GLUCOSE,RANDOM 78 mg/dL (74-106)
[2021-08-03 10:30] LABS: ANION GAP 6 MMOL/L (8-16); CO2 26 mmol/L (21-32)
[2021-08-03 10:32] LABS: CREATININE 0.4 mg/dL (0.55-1.3)
[2021-08-03 10:36] LABS: CALCIUM 9.2 mg/dL (8.5-10.1)
[2021-08-03 10:40] LABS: BLOOD UREA NITROGEN 2.9 mg/dL (7-18)
[2021-08-03] MEDS ORDERED: POTASSIUM CHLORIDE TABS 20 MEQ TABLET.ER (FP) PO ONE ×2 (13:45→14:45)
[2021-08-03 15:10] VITALS: BP 118/72; PULSE 88; TEMP 97.8
== END 2021-08-03 16:30 | disposition home or self-care (01) | DRG 566 ==
LOC: JER 10:14 → JERBED 12:38 → J3W 21:00
PROVIDERS: ADMIT Obstetrics & Gynecology; ATTEND Obstetrics & Gynecology
DX: O23.02 Infections of kidney in pregnancy, second trimester (principal); T83.512A Infection and inflammatory reaction due to nephrostomy catheter, initial encounter; B96.20 Unspecified Escherichia coli [E. coli] as the cause of diseases classified elsewhere; B96.5 Pseudomonas (aeruginosa) (mallei) (pseudomallei) as the cause of diseases classified elsewhere; Z3A.26 26 weeks gestation of pregnancy; Y84.8 Other medical procedures as the cause of abnormal reaction of the patient, or of later complication, without mention of misadventure at the time of the procedure
CPT/HCPCS: 0241U-QW; 36415; 80048; 80053; 81003; 83605; 85025; 85610; 85730; 87040; 87086; 87186; 93005; 93010; 99285-25

== ENCOUNTER 2021-08-04 14:03 | Inpatient (IN) | payer OTHER ==
[2021-08-04 15:41] LABS: BASO % 0.2 % (0-2.0); EOS % 0.3 % (0-4.5); HEMOGLOBIN 10.8 GM/dL (10.7-15.3); MCH 28.8 pg (25.7-33.7); MCHC 32.8 g/dl (32.0-36.0); MEAN CELL VOLUME 87.7 fl (80-96); MEAN PLT VOLUME 8.9 fl (7.5-11.1); MONO % 6.5 % (3.8-10.2); PLATELET COUNT 319 10^3/uL (134-434); RBC 3.76 M/mm3 (3.60-5.2); WHITE BLOOD COUNT 6.4 K/mm3 (4.0-10.0)
[2021-08-04] MEDS ORDERED: MEROPENEM 1 GM in DEXTROSE 5%-WATER 100 ML IVPB ONE (15:54)
[2021-08-04 16:34] LABS: BLOOD UREA NITROGEN 4.5 mg/dL (7-18); CALCIUM 9.1 mg/dL (8.5-10.1)
[2021-08-04 16:35] LABS: ALBUMIN 2.8 g/dl (3.4-5.0)
[2021-08-04 16:38] LABS: CREATININE 0.5 mg/dL (0.55-1.3)
[2021-08-04 16:39] LABS: BILIRUBIN,TOTAL 0.6 mg/dL (0.2-1); TOT PROT 6.8 g/dl (6.4-8.2)
[2021-08-04] MEDS ORDERED: MEROPENEM 1 GM VIAL (RESTRICTED TO ID) IVPB ONE (16:50)
[2021-08-04 20:06] VITALS: BMI 34.0
[2021-08-05] MEDS ORDERED: MEROPENEM 1 GM VIAL (RESTRICTED TO ID) IVPB ONE ×2 (09:35→16:38)
[2021-08-05] MEDS ORDERED: DEXTROSE 5%-WATER 100 ML IVPB ONE ×2 (09:35→16:38)
[2021-08-05] MEDS: MEROPENEM 1 GM in DEXTROSE 5%-WATER 100 ML IVPB SCH ×2 (09:40→17:00)
[2021-08-05 14:28] VITALS: BP 131/69; PULSE 98; TEMP 98.7
== END 2021-08-05 18:50 | disposition left against medical advice (07) | DRG 566 ==
LOC: JER 14:03 → JERBED 14:32 → J8W 19:00
PROVIDERS: ADMIT Obstetrics & Gynecology; ATTEND Obstetrics & Gynecology
PROC: 0T25X0Z Change Drainage Device in Kidney, External Approach (ICD-10-PCS; principal; 2021-08-04)
PROC: 05HB33Z Insertion of Infusion Device into Right Basilic Vein, Percutaneous Approach (ICD-10-PCS; 2021-08-04)
DX: O23.02 Infections of kidney in pregnancy, second trimester (principal); T83.512A Infection and inflammatory reaction due to nephrostomy catheter, initial encounter; Z16.12 Extended spectrum beta lactamase (ESBL) resistance; Z3A.25 25 weeks gestation of pregnancy; Y83.9 Surgical procedure, unspecified as the cause of abnormal reaction of the patient, or of later complication, without mention of misadventure at the time of the procedure; N10 Acute pyelonephritis
CPT/HCPCS: 36415; 36569; 50432; 77001-TC-FY; 80053; 85025; 87040; 99285-25; C1729; C1751; C1769; C9803-CS; U0003; U0005

== ENCOUNTER 2021-10-05 18:36 | Inpatient (IN) | payer OTHER ==
[2021-10-05] MEDS ORDERED: ACETAMINOPHEN 1000 MG/100 ML BAG IVPB ONE (19:26)
[2021-10-05] MEDS ORDERED: SODIUM CHLORIDE 0.9% 500 ML INFUS.BAG IV ONE (19:26)
[2021-10-05 19:40] VITALS: BMI 34.3
[2021-10-05] MEDS ORDERED: ACETAMINOPHEN INJECTION 100 ML IVPB ONE (20:18)
[2021-10-05 20:23] LABS: VENOUS BASE EXCESS -0.2 mmol/L (-2-2); VENOUS O2 SATURATION 93.5 % (70-80); VENOUS PCO2 29.8 mmHg (38-52); VENOUS PH 7.492 (7.310-7.410)
[2021-10-05 20:40] LABS: BASO % 0.2 % (0-2.0); HEMATOCRIT 33.8 % (32.4-45.2); HEMOGLOBIN 11.2 GM/dL (10.7-15.3); LYMPH % 8.6 % (8-40); MCHC 33.1 g/dl (32.0-36.0); MEAN CELL VOLUME 84.6 fl (80-96); MONO % 6.7 % (3.8-10.2); NEUT % 84.5 % (42.8-82.8); PLATELET COUNT 257 10^3/uL (134-434); RDW 14.5 % (11.6-15.6); WHITE BLOOD COUNT 10.7 K/mm3 (4.0-10.0)
[2021-10-05 20:46] LABS: EPI CELLS 14 /uL (0-25.1); HYALINE CASTS 4 /uL (0-3.1); URINE APPEARANCE CLEAR; URINE BACTERIA >9,000 /uL (0-1359); URINE BILIRUBIN NEGATIVE (NEGATIVE); URINE COLOR YELLOW; URINE GLUCOSE (UA) NEGATIVE (NEGATIVE); URINE KETONE 2+ (NEGATIVE); URINE LEUK ESTERASE 2+ (NEGATIVE); URINE NITRITE NEGATIVE (NEGATIVE); URINE PROTEIN TRACE (NEGATIVE); URINE RBC 14 /uL (0-23.9); URINE WBC 248 /uL (0-25.8)
[2021-10-05 20:50] LABS: INR 1.05 (0.83-1.09); PROTHROMBIN TIME (PATIENT) 12.1 SEC (9.7-13.0)
[2021-10-05 20:53] LABS: ACTIVATED PTT 31.2 SECONDS (25.2-36.5)
[2021-10-05 21:01] LABS: ALBUMIN 2.6 g/dl (3.4-5.0); BLOOD UREA NITROGEN 3.5 mg/dL (7-18)
[2021-10-05 21:04] LABS: CREATININE 0.4 mg/dL (0.55-1.3)
[2021-10-05 21:05] LABS: BILIRUBIN,TOTAL 0.6 mg/dL (0.2-1)
[2021-10-05 21:06] LABS: TOT PROT 6.6 g/dl (6.4-8.2)
[2021-10-05] MEDS ORDERED: MEROPENEM 1 GM in DEXTROSE 5%-WATER 100 ML IVPB ONE (21:26)
[2021-10-05 21:59] LABS: EPI CELLS 7 /uL (0-25.1); HYALINE CASTS 15 /uL (0-3.1); PH,URINE 7.5 (5.0-8.0); URINE APPEARANCE CLOUDY; URINE BACTERIA 4082 /uL (0-1359); URINE BILIRUBIN NEGATIVE (NEGATIVE); URINE COLOR YELLOW; URINE GLUCOSE (UA) NEGATIVE (NEGATIVE); URINE KETONE TRACE (NEGATIVE); URINE LEUK ESTERASE 3+ (NEGATIVE); URINE NITRITE NEGATIVE (NEGATIVE); URINE PROTEIN 2+ (NEGATIVE); URINE RBC 73 /uL (0-23.9); URINE WBC 702 /uL (0-25.8)
[2021-10-05] MEDS ORDERED: MEROPENEM 1 GM VIAL (RESTRICTED TO ID) IVPB ONE (22:06)
[2021-10-05] MEDS ORDERED: ELECTROLYTE-148 SOLN 1,000 ML IV SCH (23:00)
[2021-10-05] MEDS ORDERED: ACETAMINOPHEN 1000 MG/100 ML BAG IVPB PRN (23:29)
[2021-10-06 01:30] LABS: HEPATITIS B SURFACE AG MATERN NON-REACTIVE (NONREACTIVE)
[2021-10-06 01:31] LABS: SYPHILIS W/ RPR CONF NON-REACTIVE (NONREACTIVE)
[2021-10-06 01:59] LABS: HIV INTERPRETATION NEGATIVE (NEGATIVE)
[2021-10-06] MEDS: MEROPENEM 1 GM in DEXTROSE 5%-WATER 100 ML IVPB SCH ×3 (03:10→18:59)
[2021-10-06 09:20] LABS: BASO % 0.4 % (0-2.0); HEMATOCRIT 32.6 % (32.4-45.2); HEMOGLOBIN 10.8 GM/dL (10.7-15.3); LYMPH % 9.4 % (8-40); MCH 28.3 pg (25.7-33.7); MCHC 33.1 g/dl (32.0-36.0); MEAN CELL VOLUME 85.4 fl (80-96); MEAN PLT VOLUME 9.4 fl (7.5-11.1); MONO % 8.7 % (3.8-10.2); NEUT % 81.5 % (42.8-82.8); PLATELET COUNT 243 10^3/uL (134-434); RBC 3.82 M/mm3 (3.60-5.2); RDW 15.2 % (11.6-15.6); WHITE BLOOD COUNT 10.4 K/mm3 (4.0-10.0)
[2021-10-06 09:29] LABS: INR 1.09 (0.83-1.09); PROTHROMBIN TIME (PATIENT) 12.5 SEC (9.7-13.0)
[2021-10-06 09:48] LABS: CHLORIDE 102 mmol/L (98-107); SODIUM 137 mmol/L (136-145)
[2021-10-06 09:50] LABS: BLOOD UREA NITROGEN 3.2 mg/dL (7-18); GLUCOSE,RANDOM 68 mg/dL (74-106)
[2021-10-06 09:53] LABS: CO2 20 mmol/L (21-32)
[2021-10-06 09:54] LABS: CALCIUM 8.7 mg/dL (8.5-10.1); CREATININE 0.4 mg/dL (0.55-1.3)
[2021-10-06 10:11] LABS: ANION GAP 15 MMOL/L (8-16)
[2021-10-06 13:09] LABS: HIV INTERPRETATION NEGATIVE (NEGATIVE)
[2021-10-06] MEDS ORDERED: POTASSIUM CHLORIDE TABS 20 MEQ TABLET.ER (FP) PO ONE ×3 (13:30→19:30)
[2021-10-06 14:30] LABS: MAGNESIUM 1.9 mg/dL (1.8-2.4)
[2021-10-06] MEDS ORDERED: POTASSIUM CHLORIDE ORAL LIQUID 20 MEQ/15 ML PO ONE (14:45)
[2021-10-06] MEDS: KCL 10 MEQ IVPB 10 MEQ/100 ML INFUS.BAG IVPB SCH ×3 (16:33→23:52)
[2021-10-06 21:24] LABS: CHLORIDE 106 mmol/L (98-107); SODIUM 139 mmol/L (136-145)
[2021-10-06 21:25] LABS: ANION GAP 9 MMOL/L (8-16); CALCIUM 8.5 mg/dL (8.5-10.1); CO2 23 mmol/L (21-32); GLUCOSE,RANDOM 79 mg/dL (74-106)
[2021-10-06 21:29] LABS: CREATININE 0.4 mg/dL (0.55-1.3)
[2021-10-06 21:34] LABS: BLOOD UREA NITROGEN 2.6 mg/dL (7-18)
[2021-10-06] MEDS ORDERED: LACTATED RINGERS SOLUTION 1000 ML INFUS.BAG IV ONE ×2 (22:31→23:37)
[2021-10-07] MEDS: KCL 10 MEQ IVPB 10 MEQ/100 ML INFUS.BAG IVPB SCH (00:25)
[2021-10-07] MEDS: D5-1/2NS+20 MEQ KCL - 20 MEQ/1,000 ML INFUS.BAG IV SCH ×2 (01:45→15:15)
[2021-10-07] MEDS: MEROPENEM 1 GM in DEXTROSE 5%-WATER 100 ML IVPB SCH ×3 (02:05→17:55)
[2021-10-07 13:15] LABS: BASO % 0.3 % (0-2.0); EOS % 0.1 % (0-4.5); HEMATOCRIT 31.1 % (32.4-45.2); HEMOGLOBIN 10.3 GM/dL (10.7-15.3); LYMPH % 12.7 % (8-40); MCH 28.2 pg (25.7-33.7); MCHC 33.2 g/dl (32.0-36.0); MEAN CELL VOLUME 85.1 fl (80-96); MEAN PLT VOLUME 8.4 fl (7.5-11.1); MONO % 9.2 % (3.8-10.2); NEUT % 77.7 % (42.8-82.8); PLATELET COUNT 242 10^3/uL (134-434); RBC 3.65 M/mm3 (3.60-5.2); RDW 15.3 % (11.6-15.6); WHITE BLOOD COUNT 8.2 K/mm3 (4.0-10.0)
[2021-10-07 13:36] LABS: ALBUMIN 2.4 g/dl (3.4-5.0); MAGNESIUM 1.8 mg/dL (1.8-2.4)
[2021-10-07 13:39] LABS: CREATININE 0.5 mg/dL (0.55-1.3)
[2021-10-07 13:40] LABS: BILIRUBIN,TOTAL 0.7 mg/dL (0.2-1); TOT PROT 6.5 g/dl (6.4-8.2)
[2021-10-07] MEDS ORDERED: MAGNESIUM OXIDE 400 MG TABLET (FP) PO ONE (13:40)
[2021-10-07] MEDS: POTASSIUM CHLORIDE TABS 20 MEQ TABLET.ER (FP) PO SCH ×2 (14:36→23:14)
[2021-10-07 17:58] VITALS: RESP 18
[2021-10-08] MEDS: D5-1/2NS+20 MEQ KCL - 20 MEQ/1,000 ML INFUS.BAG IV SCH ×2 (02:30→15:30)
[2021-10-08] MEDS: MEROPENEM 1 GM in DEXTROSE 5%-WATER 100 ML IVPB SCH ×3 (03:05→17:52)
[2021-10-08 07:06] LABS: BASO % 0.4 % (0-2.0); EOS % 0.2 % (0-4.5); HEMATOCRIT 29.6 % (32.4-45.2); HEMOGLOBIN 9.9 GM/dL (10.7-15.3); LYMPH % 19.3 % (8-40); MCH 28.5 pg (25.7-33.7); MCHC 33.5 g/dl (32.0-36.0); MEAN PLT VOLUME 8.7 fl (7.5-11.1); MONO % 10.9 % (3.8-10.2); NEUT % 69.2 % (42.8-82.8); PLATELET COUNT 230 10^3/uL (134-434); RBC 3.47 M/mm3 (3.60-5.2); RDW 15.1 % (11.6-15.6); WHITE BLOOD COUNT 6.5 K/mm3 (4.0-10.0)
[2021-10-08 07:22] LABS: CHLORIDE 110 mmol/L (98-107); SODIUM 140 mmol/L (136-145)
[2021-10-08 07:24] LABS: CALCIUM 8.6 mg/dL (8.5-10.1)
[2021-10-08 07:25] LABS: ALBUMIN 2.1 g/dl (3.4-5.0); ANION GAP 7 MMOL/L (8-16); CO2 23 mmol/L (21-32); GLUCOSE,RANDOM 85 mg/dL (74-106); MAGNESIUM 1.7 mg/dL (1.8-2.4)
[2021-10-08 07:28] LABS: CREATININE 0.3 mg/dL (0.55-1.3); SGOT/AST 19 U/L (15-37); SGPT/ALT 16 U/L (13-61)
[2021-10-08 07:30] LABS: BILIRUBIN,TOTAL 0.6 mg/dL (0.2-1); TOT PROT 5.9 g/dl (6.4-8.2)
[2021-10-08 07:31] LABS: ALK PHOS 146 U/L (45-117)
[2021-10-08 07:56] LABS: BLOOD UREA NITROGEN 1.9 mg/dL (7-18)
[2021-10-08] MEDS: MAGNESIUM OXIDE 400 MG TABLET (FP) PO SCH ×2 (10:07→21:33)
[2021-10-09] MEDS: MEROPENEM 1 GM in DEXTROSE 5%-WATER 100 ML IVPB SCH ×2 (01:29→10:58)
[2021-10-09 08:31] LABS: BASO % 0.3 % (0-2.0); EOS % 0.5 % (0-4.5); HEMATOCRIT 28.9 % (32.4-45.2); HEMOGLOBIN 9.6 GM/dL (10.7-15.3); LYMPH % 24.3 % (8-40); MCH 28.1 pg (25.7-33.7); MCHC 33.3 g/dl (32.0-36.0); MEAN CELL VOLUME 84.4 fl (80-96); MEAN PLT VOLUME 8.8 fl (7.5-11.1); MONO % 10.1 % (3.8-10.2); NEUT % 64.8 % (42.8-82.8); PLATELET COUNT 262 10^3/uL (134-434); RBC 3.42 M/mm3 (3.60-5.2); RDW 15.1 % (11.6-15.6); WHITE BLOOD COUNT 5.7 K/mm3 (4.0-10.0)
[2021-10-09 08:54] LABS: CHLORIDE 108 mmol/L (98-107); SODIUM 141 mmol/L (136-145)
[2021-10-09 08:56] LABS: CALCIUM 8.6 mg/dL (8.5-10.1); GLUCOSE,RANDOM 67 mg/dL (74-106)
[2021-10-09 08:57] LABS: ALBUMIN 2.1 g/dl (3.4-5.0); ANION GAP 9 MMOL/L (8-16); CO2 24 mmol/L (21-32); MAGNESIUM 1.8 mg/dL (1.8-2.4)
[2021-10-09 09:00] LABS: CREATININE 0.3 mg/dL (0.55-1.3); SGOT/AST 21 U/L (15-37); SGPT/ALT 17 U/L (13-61)
[2021-10-09 09:01] LABS: BILIRUBIN,TOTAL 0.5 mg/dL (0.2-1); TOT PROT 5.8 g/dl (6.4-8.2)
[2021-10-09 09:02] LABS: ALK PHOS 147 U/L (45-117); BLOOD UREA NITROGEN 1.1 mg/dL (7-18)
[2021-10-09] MEDS ORDERED: MAGNESIUM OXIDE 400 MG TABLET (FP) PO ONE (10:55)
[2021-10-09 11:44] VITALS: BP 133/87; PULSE 86; TEMP 98.7
== END 2021-10-09 17:00 | disposition home or self-care (01) | DRG 566 ==
LOC: JER 18:36 → JERBED 21:55 → JLDR 23:37 → J3W 10-06 01:09
PROVIDERS: ADMIT Obstetrics & Gynecology; ATTEND Obstetrics & Gynecology
DX: O23.03 Infections of kidney in pregnancy, third trimester (principal); Z3A.34 34 weeks gestation of pregnancy; O26.893 Other specified pregnancy related conditions, third trimester; E87.6 Hypokalemia; E83.42 Hypomagnesemia; Z93.6 Other artificial openings of urinary tract status; N13.9 Obstructive and reflux uropathy, unspecified; R53.83 Other fatigue; R68.83 Chills (without fever); N10 Acute pyelonephritis; O99.213 Obesity complicating pregnancy, third trimester
CPT/HCPCS: 0241U-QW; 36415; 71045-TC-FY; 80048; 80053; 81003; 82803; 83605; 83735; 85025; 85610; 85730; 86140; 86780; 86850; 86900; 86901; 87040; 87086; 87186; 87340; 87389; 93005; 93010; 99285-25

== ENCOUNTER 2021-11-18 21:50 | Inpatient (IN) | payer OTHER ==
[2021-11-18] MEDS: ELECTROLYTE-148 SOLN 1,000 ML IV SCH (22:00)
[2021-11-18 23:47] VITALS: BMI 34.3
[2021-11-18 23:49] LABS: BASO % 0.1 % (0-2.0); EOS % 0.3 % (0-4.5); HEMATOCRIT 34.4 % (32.4-45.2); HEMOGLOBIN 11.6 GM/dL (10.7-15.3); LYMPH % 28.7 % (8-40); MCH 28.8 pg (25.7-33.7); MCHC 33.9 g/dl (32.0-36.0); MEAN CELL VOLUME 85.1 fl (80-96); MEAN PLT VOLUME 9.1 fl (7.5-11.1); MONO % 7.2 % (3.8-10.2); NEUT % 63.7 % (42.8-82.8); PLATELET COUNT 240 10^3/uL (134-434); RBC 4.04 M/mm3 (3.60-5.2); RDW 14.9 % (11.6-15.6); WHITE BLOOD COUNT 5.6 K/mm3 (4.0-10.0)
[2021-11-18 23:56] LABS: INR 0.91 (0.83-1.09); PROTHROMBIN TIME (PATIENT) 10.5 SEC (9.7-13.0)
[2021-11-18 23:58] LABS: ACTIVATED PTT 30.2 SECONDS (25.2-36.5)
[2021-11-18] MEDS ORDERED: morphine SULFATE/PF 1 MG/2 ML (2cc Syringe - QUVA) ONE (23:58)
[2021-11-19] MEDS ORDERED: METHYLERGONOVINE MALEATE 0.2 MG/1 ML AMP IM PRN
[2021-11-19] MEDS ORDERED: CITRIC ACID/SODIUM CITRATE 30 ML UNIT-DOSE CUP PO ONE
[2021-11-19] MEDS ORDERED: ACETAMINOPHEN 325 MG TABLET (FP) PO PRN
[2021-11-19] MEDS ORDERED: IBUPROFEN 600 MG TABLET (FP) PO PRN
[2021-11-19] MEDS ORDERED: WITCH HAZEL 50% (TUCKS) 40 PAD/JAR PAD TP PRN
[2021-11-19 00:10] LABS: CALCIUM 9.1 mg/dL (8.5-10.1)
[2021-11-19 00:11] LABS: BLOOD UREA NITROGEN 7.9 mg/dL (7-18)
[2021-11-19 00:14] LABS: CREATININE 0.6 mg/dL (0.55-1.3)
[2021-11-19] MEDS ORDERED: PHENYLEPHRINE HCL 10 MG/1 ML SINGLE DOSE VIAL ONE (00:40)
[2021-11-19] MEDS ORDERED: OXYTOCIN 10 UNITS/ML VIAL ONE (00:40)
[2021-11-19] MEDS ORDERED: ONDANSETRON 4 MG/2 ML VIAL ONE (00:40)
[2021-11-19] MEDS ORDERED: KETOROLAC TROMETHAMINE 30 MG/1 ML VIAL ONE (00:40)
[2021-11-19] MEDS ORDERED: ceFAZolin SODIUM 1 GM VIAL ONE (00:40)
[2021-11-19] MEDS: OXYTOCIN 20 UNITS in 0.9% NS 20 UNIT/1,000 ML INFUS.BAG IV SCH ×2 (01:15→12:21)
[2021-11-19] MEDS ORDERED: morphine SULFATE/PF 1 MG/2 ML (2cc Syringe - QUVA) IT ONE (01:23)
[2021-11-19] MEDS ORDERED: ONDANSETRON 4 MG/2 ML VIAL IVPUSH PRN (01:23)
[2021-11-19] MEDS ORDERED: ACETAMINOPHEN 1000 MG/100 ML BAG IVPB ONE (01:24)
[2021-11-19 03:07] LABS: CORD BASE EXCESS -5.4 mmol/L (0-2); CORD HCO3 24.2 mmHg (20-29); CORD PCO2 67.5 mmHg (30-78); CORD pH 7.173 (7.14-7.44)
[2021-11-19] MEDS ORDERED: ACETAMINOPHEN INJECTION 100 ML IVPB ONE (03:28)
[2021-11-19] MEDS ORDERED: OXYTOCIN 20 UNITS in 0.9% NS 20 UNIT/1,000 ML INFUS.BAG IV ONE (03:57)
[2021-11-19 08:38] LABS: BASO % 0.3 % (0-2.0); EOS % 0.2 % (0-4.5); HEMATOCRIT 34.5 % (32.4-45.2); HEMOGLOBIN 11.1 GM/dL (10.7-15.3); LYMPH % 26.2 % (8-40); MCH 27.7 pg (25.7-33.7); MCHC 32.2 g/dl (32.0-36.0); MEAN CELL VOLUME 86.2 fl (80-96); MEAN PLT VOLUME 9.1 fl (7.5-11.1); MONO % 8.7 % (3.8-10.2); NEUT % 64.6 % (42.8-82.8); PLATELET COUNT 229 10^3/uL (134-434); RBC 4.01 M/mm3 (3.60-5.2); RDW 15.3 % (11.6-15.6); WHITE BLOOD COUNT 8.1 K/mm3 (4.0-10.0)
[2021-11-19] MEDS: FERROUS SO4 325 MG TABLET (FP) PO SCH ×2 (09:45→22:00)
[2021-11-19] MEDS: PRENATAL VITAMINS W/ FOLIC ACID TABLET (FP) PO SCH (09:45)
[2021-11-19] MEDS ORDERED: DIPHTH,PERTUSS(ACELL),TET 0.5 ML DISP.SYRIN IM ONE (10:00)
[2021-11-19] MEDS ORDERED: oxyCODONE HCL 5 MG TABLET PO PRN (12:00)
[2021-11-19] MEDS: IBUPROFEN 800 MG/8 ML IJ IVPB PRN (15:06)
[2021-11-19] MEDS: CEFAZOLIN 1 GM in DEXTROSE 5%-WATER - 50 ML IVPB SCH (17:16)
[2021-11-19] MEDS ORDERED: CEFAZOLIN 1 GM in DEXTROSE 5%-WATER - 50 ML IVPB SCH (18:00)
[2021-11-19] MEDS: SIMETHICONE 80 MG TAB.CHEW (FP) PO PRN (22:00)
[2021-11-20] MEDS ORDERED: BISACODYL 10 MG SUPP.RECT RC PRN
[2021-11-20] MEDS: CEFAZOLIN 1 GM in DEXTROSE 5%-WATER - 50 ML IVPB SCH ×2 (02:04→09:54)
[2021-11-20 07:51] LABS: BASO % 0.5 % (0-2.0); EOS % 0.4 % (0-4.5); HEMATOCRIT 35.5 % (32.4-45.2); HEMOGLOBIN 11.6 GM/dL (10.7-15.3); LYMPH % 25.5 % (8-40); MCHC 32.6 g/dl (32.0-36.0); MEAN CELL VOLUME 85.8 fl (80-96); MEAN PLT VOLUME 8.9 fl (7.5-11.1); MONO % 4.8 % (3.8-10.2); NEUT % 68.8 % (42.8-82.8); PLATELET COUNT 246 10^3/uL (134-434); RBC 4.14 M/mm3 (3.60-5.2); RDW 15.4 % (11.6-15.6); WHITE BLOOD COUNT 8.8 K/mm3 (4.0-10.0)
[2021-11-20] MEDS: FERROUS SO4 325 MG TABLET (FP) PO SCH ×2 (09:55→21:44)
[2021-11-20] MEDS: PRENATAL VITAMINS W/ FOLIC ACID TABLET (FP) PO SCH (09:55)
[2021-11-20] MEDS ORDERED: DIPHTH,PERTUSS(ACELL),TET 0.5 ML DISP.SYRIN IM ONE ×2 (10:00)
[2021-11-20] MEDS: IBUPROFEN 800 MG/8 ML IJ IVPB PRN (10:58)
[2021-11-20] MEDS ORDERED: TAMSULOSIN HCL 0.4 MG CAP PO SCH (18:00)
[2021-11-20] MEDS ORDERED: CEFAZOLIN 1 GM in DEXTROSE 5%-WATER - 50 ML IVPB SCH (18:00)
[2021-11-20] MEDS: ELECTROLYTE-148 SOLN 1,000 ML IV SCH (19:26)
[2021-11-20] MEDS: OXYTOCIN 20 UNITS in 0.9% NS 20 UNIT/1,000 ML INFUS.BAG IV SCH (19:27)
[2021-11-20] MEDS: SIMETHICONE 80 MG TAB.CHEW (FP) PO PRN (21:44)
[2021-11-20] MEDS: oxyCODONE HCL 5 MG TABLET PO PRN (21:44)
[2021-11-21] MEDS: PRENATAL VITAMINS W/ FOLIC ACID TABLET (FP) PO SCH (10:20)
[2021-11-21] MEDS: oxyCODONE HCL 5 MG TABLET PO PRN ×2 (10:20→19:59)
[2021-11-21] MEDS: FERROUS SO4 325 MG TABLET (FP) PO SCH ×2 (10:20→21:32)
[2021-11-21] MEDS: SIMETHICONE 80 MG TAB.CHEW (FP) PO PRN (19:59)
[2021-11-22] MEDS: oxyCODONE HCL 5 MG TABLET PO PRN (00:14)
[2021-11-22] MEDS: SIMETHICONE 80 MG TAB.CHEW (FP) PO PRN (00:14)
[2021-11-22 08:04] LABS: BASO % 0.4 % (0-2.0); EOS % 1.2 % (0-4.5); HEMATOCRIT 30.5 % (32.4-45.2); HEMOGLOBIN 10.2 GM/dL (10.7-15.3); MCH 28.9 pg (25.7-33.7); MCHC 33.5 g/dl (32.0-36.0); MEAN CELL VOLUME 86.3 fl (80-96); MEAN PLT VOLUME 8.5 fl (7.5-11.1); MONO % 7.6 % (3.8-10.2); NEUT % 56.8 % (42.8-82.8); PLATELET COUNT 232 10^3/uL (134-434); RBC 3.53 M/mm3 (3.60-5.2); RDW 15.6 % (11.6-15.6); WHITE BLOOD COUNT 5.5 K/mm3 (4.0-10.0)
[2021-11-22] MEDS: FERROUS SO4 325 MG TABLET (FP) PO SCH (10:02)
[2021-11-22] MEDS: PRENATAL VITAMINS W/ FOLIC ACID TABLET (FP) PO SCH (10:02)
[2021-11-22 10:08] VITALS: BP 124/81; PULSE 78; RESP 18; TEMP 98.4
== END 2021-11-22 14:35 | disposition home or self-care (01) | DRG 540 ==
LOC: JLDR 21:50 → J3W 11-19 04:41
PROVIDERS: ADMIT Obstetrics & Gynecology; ATTEND Obstetrics & Gynecology
PROC: 10D00Z1 Extraction of Products of Conception, Low, Open Approach (ICD-10-PCS; principal; 2021-11-19)
DX: O36.8930 Maternal care for other specified fetal problems, third trimester, not applicable or unspecified (principal); O76 Abnormality in fetal heart rate and rhythm complicating labor and delivery; O34.211 Maternal care for low transverse scar from previous cesarean delivery; O99.214 Obesity complicating childbirth; E66.9 Obesity, unspecified; Z96.0 Presence of urogenital implants; Z87.42 Personal history of other diseases of the female genital tract; Z37.0 Single live birth; Z3A.41 41 weeks gestation of pregnancy
CPT/HCPCS: 36415; 36600; 80048; 82803; 85025; 85610; 85730; 86780; 86850; 86900; 86901; 88307-TC; 90715; C9803-CS; U0003; U0005

== ENCOUNTER 2021-12-10 23:10 | Inpatient (IN) | payer OTHER ==
[2021-12-11] MEDS ORDERED: ACETAMINOPHEN 1000 MG/100 ML BAG IVPB ONE (00:19)
[2021-12-11 00:51] LABS: BASO % 1.6 % (0-2.0); EOS % 0.8 % (0-4.5); HEMOGLOBIN 12.7 GM/dL (10.7-15.3); LYMPH % 56.6 % (8-40); MCH 28.1 pg (25.7-33.7); MCHC 32.6 g/dl (32.0-36.0); MEAN PLT VOLUME 8.6 fl (7.5-11.1); MONO % 6.7 % (3.8-10.2); NEUT % 34.3 % (42.8-82.8); PLATELET COUNT 354 10^3/uL (134-434); RBC 4.53 M/mm3 (3.60-5.2); RDW 15.3 % (11.6-15.6); WHITE BLOOD COUNT 4.7 K/mm3 (4.0-10.0)
[2021-12-11] MEDS ORDERED: ACETAMINOPHEN INJECTION 100 ML IVPB ONE (01:05)
[2021-12-11 01:14] LABS: ALBUMIN 3.4 g/dl (3.4-5.0); BLOOD UREA NITROGEN 17.2 mg/dL (7-18); CALCIUM 9.2 mg/dL (8.5-10.1)
[2021-12-11 01:17] LABS: CREATININE 0.8 mg/dL (0.55-1.3)
[2021-12-11 01:19] LABS: BILIRUBIN,TOTAL 0.2 mg/dL (0.2-1); TOT PROT 8.1 g/dl (6.4-8.2)
[2021-12-11 01:26] LABS: EPI CELLS 9 /uL (0-25.1); HYALINE CASTS 1 /uL (0-3.1); PH,URINE 6.5 (5.0-8.0); URINE APPEARANCE CLEAR; URINE BACTERIA 4 /uL (0-1359); URINE BILIRUBIN NEGATIVE (NEGATIVE); URINE COLOR YELLOW; URINE GLUCOSE (UA) NEGATIVE (NEGATIVE); URINE KETONE NEGATIVE (NEGATIVE); URINE LEUK ESTERASE 1+ (NEGATIVE); URINE NITRITE NEGATIVE (NEGATIVE); URINE PROTEIN NEGATIVE (NEGATIVE); URINE RBC 9 /uL (0-23.9); URINE UROBILINOGEN 0.2 mg/dL (0.2-1.0); URINE WBC 99 /uL (0-25.8)
[2021-12-11] MEDS ORDERED: ACETAMINOPHEN 1000 MG/100 ML BAG IVPB PRN (09:38)
[2021-12-11] MEDS ORDERED: ONDANSETRON 4 MG/2 ML VIAL IVPUSH PRN (09:39)
[2021-12-11] MEDS: LACTATED RINGERS SOLUTION 1,000 ML IV SCH ×2 (12:06→20:42)
[2021-12-11 13:41] VITALS: BMI 30.6
[2021-12-11] MEDS ORDERED: amLODIPine BESYLATE 5 MG TABLET (FP) PO ONE (19:59)
[2021-12-12] MEDS ORDERED: MEROPENEM 1 GM in DEXTROSE 5%-WATER 100 ML IVPB ONE (07:22)
[2021-12-12] MEDS: amLODIPine BESYLATE 5 MG TABLET (FP) PO SCH ×2 (09:52→09:54)
[2021-12-12 12:05] LABS: HEMATOCRIT 39.9 % (32.4-45.2); HEMOGLOBIN 12.8 GM/dL (10.7-15.3); MCH 27.6 pg (25.7-33.7); MCHC 32.1 g/dl (32.0-36.0); MEAN CELL VOLUME 85.8 fl (80-96); MEAN PLT VOLUME 8.5 fl (7.5-11.1); PLATELET COUNT 323 10^3/uL (134-434); RBC 4.65 M/mm3 (3.60-5.2); RDW 15.2 % (11.6-15.6); WHITE BLOOD COUNT 3.5 K/mm3 (4.0-10.0)
[2021-12-12 12:29] LABS: CALCIUM 8.9 mg/dL (8.5-10.1)
[2021-12-12 12:30] LABS: BLOOD UREA NITROGEN 12.4 mg/dL (7-18)
[2021-12-12 12:33] LABS: CREATININE 0.6 mg/dL (0.55-1.3)
[2021-12-12] MEDS ORDERED: PROPOFOL 40 ML ONE (13:32)
[2021-12-12] MEDS ORDERED: ONDANSETRON 4 MG/2 ML VIAL IVPUSH PRN ×4 (13:51→16:30)
[2021-12-12] MEDS ORDERED: LACTATED RINGERS SOLUTION 1,000 ML IV SCH ×2 (14:00→16:30)
[2021-12-12] MEDS ORDERED: MIDAZOLAM HCL 2 MG/2 ML SINGLE DOSE VIAL ONE (14:44)
[2021-12-12] MEDS ORDERED: IOHEXOL 300 MG/ML INFUS..BTL IV ONE (15:15)
[2021-12-12] MEDS ORDERED: LABETALOL HCL 5 MG/1 ML (100MG/20 ML VIAL) IVPUSH ONE (16:31)
[2021-12-12] MEDS ORDERED: hydrALAZINE HCL 20 MG/ML VIAL IVPUSH ONE ×2 (16:43→17:23)
[2021-12-12] MEDS ORDERED: hydrALAZINE HCL 20 MG/ML VIAL ONE (17:18)
[2021-12-12] MEDS ORDERED: MEROPENEM 1 GM in DEXTROSE 5%-WATER 100 ML IVPB SCH (18:00)
[2021-12-12 18:28] VITALS: PULSE 68; RESP 20; TEMP 98
[2021-12-12] MEDS ORDERED: ACETAMINOPHEN 1000 MG/100 ML BAG IVPB PRN (19:40)
[2021-12-12 20:06] VITALS: BP 138/88
[2021-12-13] MEDS ORDERED: amLODIPine BESYLATE 5 MG TABLET (FP) PO SCH (10:00)
== END 2021-12-12 21:48 | disposition home or self-care (01) | DRG 951 ==
LOC: JER 23:10 → JERBED 12-11 07:12 → J8W 12-11 08:56
PROVIDERS: ADMIT Internal Medicine
PROC: 0T7 Urinary System, Dilation (ICD-10-PCS; 2021-12-12)
PROC: 0TF78ZZ Fragmentation in Left Ureter, Via Natural or Artificial Opening Endoscopic (ICD-10-PCS; 2021-12-12)
PROC: 0T7D7ZZ Dilation of Urethra, Via Natural or Artificial Opening (ICD-10-PCS; 2021-12-12)
PROC: 0T778DZ Dilation of Left Ureter with Intraluminal Device, Via Natural or Artificial Opening Endoscopic (ICD-10-PCS; principal; 2021-12-12 14:30)
PROC: BT1FZZZ Fluoroscopy of Left Kidney, Ureter and Bladder (ICD-10-PCS; 2021-12-12 14:30)
PROC: 0TP530Z Removal of Drainage Device from Kidney, Percutaneous Approach (ICD-10-PCS; 2021-12-12 14:30)
DX: O99.893 Other specified diseases and conditions complicating puerperium (principal); O23.41 Unspecified infection of urinary tract in pregnancy, first trimester; N13.2 Hydronephrosis with renal and ureteral calculous obstruction; I10 Essential (primary) hypertension; D25.9 Leiomyoma of uterus, unspecified; Z3A.08 8 weeks gestation of pregnancy
CPT/HCPCS: 36415; 74176-TC; 76000-TC-FY; 80048; 80053; 81003; 84703; 85025; 85027; 87086; 93005; 93010; 94760; 99285-25; C2617; C9803-CS; U0003; U0005